=== PATIENT | female | born 1975 | race Caucasian/White ===

== ENCOUNTER → 2017-04-20 | Emergency (ER) | payer OTHER ==
[~2017-04-20] VITALS: Ht 160 cm; Wt 104.3 kg
[~2017-04-20] MED LIST: ADERAL; AMBIEN5 MG; CIPRO500 MG PO; CONCERTA27 MG/BOTT; KETO10TA2 PO; WELLBUTRIN XL300 MG
== END | disposition left against medical advice (07) ==
LOC: ER 15:49
DX: Z53.20 Procedure and treatment not carried out because of patient's decision for unspecified reasons (principal)

== ENCOUNTER 2018-10-10 22:36 | Emergency (ER) | payer OTHER ==
[~2018-10-10] VITALS: Ht 167.6 cm; Wt 105.2 kg
[2018-10-10] MEDS ORDERED: LOSARTAN-HCTZ1 EACH PO (23:11)
== END 2018-10-11 01:52 | disposition home or self-care (01) ==
LOC: ER 22:36
DX: H66.92 Otitis media, unspecified, left ear (principal); R42 Dizziness and giddiness

== ENCOUNTER 2024-06-13 05:10 | Day surgery (SDC) | payer OTHER ==
[2024-06-10 13:50] VITALS: BP 135/80
[~2024-06-13] VITALS: Ht 162.6 cm; Wt 117.9 kg
[~2024-06-13 05:10] MED LIST changes: +LOSARTAN-HCTZ1 EACH PO
[2024-06-13] MEDS ORDERED: METRONIDAZOLE/SODIUM CHLORIDE 500 MG/100 ML PIGGYBACK IV ONE (09:15)
[2024-06-13] MEDS ORDERED: BUPIVACAINE HCL 30 ML VIAL IJ ONE (09:15)
[2024-06-13] MEDS ORDERED: POVIDONE-IODINE 118 ML BOTT TOP ONE (09:15)
[2024-06-13] MEDS ORDERED: CHLORHEXIDINE GLUCONATE 120 ML BOTTLE TOP ONE (09:15)
[2024-06-13] MEDS ORDERED: ACETAMINOPHEN-1 EAC2 PO (11:17)
[2024-06-13] MEDS ORDERED: DICLOFENAC POTA50 MG PO (11:18)
[2024-06-13] MEDS ORDERED: MORPHINE SULFATE 4 MG/ML VIAL IV ONE (13:30)
== END 2024-06-13 14:30 | disposition home or self-care (01) ==
LOC: CIR.AMB 05:10
PROVIDERS: ATTEND Obstetrics & Gynecology
DX: D27.1 Benign neoplasm of left ovary (principal); D28.2 Benign neoplasm of uterine tubes and ligaments; D25.2 Subserosal leiomyoma of uterus; K43.9 Ventral hernia without obstruction or gangrene; Z88.0 Allergy status to penicillin; Z88.2 Allergy status to sulfonamides; I10 Essential (primary) hypertension

== ENCOUNTER → 2024-06-16 | Emergency (ER) | payer OTHER ==
[~2024-06-16] VITALS: Ht 167.6 cm; Wt 117.9 kg
[~2024-06-16] MED LIST changes: +ACETAMINOPHEN-1 EAC2 PO; +DICLOFENAC POTA50 MG PO
== END | disposition left against medical advice (07) ==
LOC: ER 03:14
DX: Z53.21 Procedure and treatment not carried out due to patient leaving prior to being seen by health care provider (principal)